=== PATIENT | male | born 1985 | race Caucasian/White ===

== ENCOUNTER 2016-08-31 11:19 | Emergency (ER) | payer OTHER ==
[2016-08-31 11:37] VITALS: BP 134/91; PULSE 68; TEMP 98.6; BMI 27.8
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
== END 2016-08-31 13:44 | disposition home or self-care (01) ==
LOC: JERFT 11:19
DX: J70.5 Respiratory conditions due to smoke inhalation (principal); X08.8XXA Exposure to other specified smoke, fire and flames, initial encounter; Y93.89 Activity, other specified; Y92.89 Other specified places as the place of occurrence of the external cause; Y99.0 Civilian activity done for income or pay
CPT/HCPCS: 82375; 99281-25

== ENCOUNTER 2017-06-24 10:47 | Emergency (ER) | payer OTHER ==
[2017-06-24 11:12] VITALS: BP 126/74; PULSE 66; TEMP 98.3; BMI 27.3
[2017-06-24] MEDS ORDERED: KETOROLAC TROMETHAMINE 60 MG/2 ML VIAL IM ONE (12:14)
[2017-06-24] MEDS ORDERED: CYCLOBENZAPRINE HCL 10 MG TABLET (FP) PO ONE (12:14)
--- NOTE | 2017-06-24 12:14 | PDOC ---
History of Present Illness - General Chief Complaint: Back Pain Stated Complaint: LIN, BACK PAIN Time Seen by Provider: 06/24/17 11:48 History Source: Patient Exam Limitations: No Limitations - History of Present Illness Initial Comments: 06/24/17 12:18 Patient is a 31-year-old male, LIN, with no past medical history, who presents emergency department today complaining of right lower back pain. 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 As a result of his colleagues slipping. The patient twisted his low back and had increased weight to his lift. Denies previous back injury. Denies weakness, numbness and tingling of the legs, gait changes, ladder/bowel incontinence, dizziness, lightheadedness, neck pain, head pain, LOC. Past History - Travel Traveled outside of the country in the last 30 days: No Close contact w/someone who was outside of country & ill: No - Past Medical History Allergies/Adverse Reactions: Allergies Allergy/AdvReac Type Severity Reaction Status Date / Time cats AdvReac Uncoded 06/24/17 11:09 pollen AdvReac Uncoded 06/24/17 11:09 Home Medications: Ambulatory Orders Cyclobenzaprine HCl [Flexeril -] 10 mg PO HS #7 tablet 06/24/17 Ibuprofen 800 mg PO TID #30 tablet 06/24/17 COPD: No Other medical history: DENIES. - Immunization History Td Vaccination: Yes Immunization Up to Date: Yes - Suicide/Smoking/Psychosocial Hx Smoking Status: No Smoking History: Never smoked Have you smoked in the past 12 months: No Number of Cigarettes Smoked Daily: 0 Cigars Per Day: 0 Hx Alcohol Use: No Drug/Substance Use Hx: No Substance Use Type: None Review of Systems - Review of Systems Able to Perform ROS?: Yes Comments:: 06/24/17 12:20 CONSTITUTIONAL: Absent: fever, chills, diaphoresis, generalized weakness, malaise, loss of appetite HEENT: Absent: rhinorrhea, nasal congestion, throat pain, throat swelling, difficulty swallowing, mouth swelling, ear pain, eye pain, visual Changes CARDIOVASCULAR: Absent: chest pain, loss of consciousness, palpitations, irregular heart rate, peripheral edema RESPIRATORY: Absent: cough, shortness of breath, dyspnea with exertion, orthopnea, wheezing, stridor, hemoptysis GASTROINTESTINAL: Absent: abdominal pain, abdominal distension, nausea, vomiting, diarrhea, constipation, melena, hematochezia GENITOURINARY: Absent: dysuria, frequency, urgency, hesitancy, hematuria, flank pain, genital pain MUSCULOSKELETAL: Present: R lower back pain. Absent: myalgia, arthralgia, joint swelling SKIN: Absent: rash, itching, pallor HEMATOLOGIC/IMMUNOLOGIC: Absent: easy bleeding, easy bruising, lymphadenopathy, frequent infections ENDOCRINE: Absent: unexplained weight gain, unexplained weight loss, heat intolerance, cold intolerance NEUROLOGIC: Absent: headache, focal weakness or paresthesias, dizziness, unsteady gait, seizure, mental status changes, bladder or bowel incontinence PSYCHIATRIC: Absent: anxiety, depression, suicidal or homicidal ideation, hallucinations. Is the patient limited Korean proficient: No *Physical Exam - Vital Signs Last Vital Signs Temp Pulse Resp BP Pulse Ox 98.3 F 66 19 126/74 99 06/24/17 11:10 06/24/17 11:10 06/24/17 11:10 06/24/17 11:10 06/24/17 11:10 - Physical Exam Comments: 06/24/17 12:21 GENERAL: Well developed, well nourished. Awake and alert. No acute distress. Sitting on exam bed. NECK: Supple. Full ROM. No JVD. Carotid pulses 2+ and symmetric, without bruits. No thyromegaly. No lymphadenopathy. MUSCULOSKELETAL TTP of the R lower paraspinous muscles at level of L3-L5. Pt. also with tenderness to L lower paraspinous muscles. No midline tenderness at the neck or back. (-) flip test. Normal range of motion at all joints. No bony deformities or tenderness. No CVA tenderness. EXTREMITIES: No cyanosis. No clubbing. No edema. No calf tenderness. Strength of upper and lower extremities intact b/l 5/5. SKIN: Warm and dry. Normal capillary refill. No rashes. No jaundice. NEUROLOGICAL: Alert, awake, appropriate. Cranial nerves 2-12 intact. No deficits to light touch and temperature in face, upper extremities and lower extremities. No motor deficits in the in face, upper extremities and lower extremities. Normoreflexic in the upper and lower extremities. Normal speech. Toes are down- going bilaterally. Gait is normal without ataxia. Normal rectal tone. Medical Decision Making - Medical Decision Making 12/04/17 12:28 Patient is a 31-year-old male, [employer] ED, with no past medical history presents emergency Department with low back pain after lifting a heavy patient. Exam shows tenderness to the right paraspinous muscles. Rest of exam is benign. VSS, afebrile. We'll treat at this time with Flexeril and toradol. Patient given strict return precautions. We'll discharge home at this time with rx for ibuprofen and flexaril. *DC/Admit/Observation/Transfer Diagnosis at time of Disposition: Low back pain Qualifiers: Chronicity: acute Back pain laterality: bilateral Sciatica presence: without sciatica Qualified Code(s): M54.5 - Low back pain - Discharge Dispostion Disposition: HOME Condition at time of disposition: Good Admit: No - Prescriptions Prescriptions: Cyclobenzaprine HCl [Flexeril -] 10 mg PO HS #7 tablet Ibuprofen 800 mg PO TID #30 tablet - Referrals - Patient Instructions Printed Discharge Instructions: DI for Low Back Pain Additional Instructions: You have low back pain. This is most likely due to the lifting sustained at work today. Please take Motrin 800 mg 3 times a day for the next week. Please do not exceed 3000 mg a day. You may also take Flexeril 10 mg at night. Do not take this medication before driving, as it may make you sleepy. You may use heat on the area to help with the pain. Please follow-up with your primary care doctor in the next 2-3 days. Please avoid lifting anything heavier than 10 pounds. Return to the emergency department if you have worsening pain, numbness and tingling down her legs, weakness, bladder or bowel incontinence, changes in the way walk, or if you have any changes in your symptoms. - Post Discharge Activity Forms/Work/School Notes: Back to Work
[2017-06-24] MEDS ORDERED: KETOROLAC TROMETHAMINE 60 MG/2 ML VIAL ONE (12:18)
[2017-06-24] MEDS ORDERED: CYCLOBENZAPRINE HCL 10 MG TABLET (FP) ONE (12:18)
== END 2017-06-24 12:30 | disposition home or self-care (01) ==
LOC: JERFT 10:47
PROC: 3E0233Z Introduction of Anti-inflammatory into Muscle, Percutaneous Approach (ICD-10-PCS; principal; 2017-06-24)
DX: S39.012A Strain of muscle, fascia and tendon of lower back, initial encounter (principal); X50.0XXA Overexertion from strenuous movement or load, initial encounter; Y93.F2 Activity, caregiving, lifting; Y92.89 Other specified places as the place of occurrence of the external cause; Y99.0 Civilian activity done for income or pay
CPT/HCPCS: 99281-25

== ENCOUNTER 2017-08-28 19:13 | Emergency (ER) | payer OTHER ==
[2017-08-28 19:21] VITALS: BP 131/77; PULSE 84; TEMP 98.4; BMI 27.1
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
[2017-08-28] MEDS ORDERED: IBUPROFEN 600 MG TABLET (FP) PO ONE ×2 (19:56→20:01)
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
== END 2017-08-28 20:03 | disposition home or self-care (01) ==
LOC: JERFT 19:13
DX: S39.012A Strain of muscle, fascia and tendon of lower back, initial encounter (principal); S80.01XA Contusion of right knee, initial encounter; W18.39XA Other fall on same level, initial encounter; Y35.811A Legal intervention involving manhandling, law enforcement official injured, initial encounter; Y93.89 Activity, other specified; Y92.89 Other specified places as the place of occurrence of the external cause; Y99.0 Civilian activity done for income or pay
CPT/HCPCS: 99281-25

== ENCOUNTER 2017-10-15 17:28 | Emergency (ER) | payer OTHER ==
[2017-10-15 17:40] VITALS: BP 126/84; PULSE 115; TEMP 98.3; BMI 27.8
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
== END 2017-10-15 19:05 | disposition home or self-care (01) ==
LOC: JERFT 17:28
DX: S89.81XA Other specified injuries of right lower leg, initial encounter (principal); S69.81XA Other specified injuries of right wrist, hand and finger(s), initial encounter; Y35.811A Legal intervention involving manhandling, law enforcement official injured, initial encounter; Y93.89 Activity, other specified; Y92.89 Other specified places as the place of occurrence of the external cause; Y99.0 Civilian activity done for income or pay
CPT/HCPCS: 99281-25

== ENCOUNTER 2018-02-06 21:37 | Emergency (ER) | payer OTHER ==
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
[2018-02-06 21:53] VITALS: BP 147/67; PULSE 72; TEMP 97.4; BMI 28.4
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
== END 2018-02-06 22:27 | disposition home or self-care (01) ==
LOC: JER 21:37
DX: Z20.1 Contact with and (suspected) exposure to tuberculosis (principal); Y35.891A Legal intervention involving other specified means, law enforcement official injured, initial encounter; Y93.89 Activity, other specified; Y92.89 Other specified places as the place of occurrence of the external cause; Y99.0 Civilian activity done for income or pay
CPT/HCPCS: 71045-TC-FY; 99281-25

== ENCOUNTER 2018-03-15 19:43 | Emergency (ER) | payer OTHER ==
[2018-03-15 20:10] VITALS: BP 146/76; PULSE 97; TEMP 98.6; BMI 28.4
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
== END 2018-03-15 20:42 | disposition home or self-care (01) ==
LOC: JERFT 19:43
DX: S00.83XA Contusion of other part of head, initial encounter (principal); Y04.2XXA Assault by strike against or bumped into by another person, initial encounter; Y35.891A Legal intervention involving other specified means, law enforcement official injured, initial encounter; Y93.89 Activity, other specified; Y92.89 Other specified places as the place of occurrence of the external cause; Y99.0 Civilian activity done for income or pay; Y07.9 Unspecified perpetrator of maltreatment and neglect
CPT/HCPCS: 99281-25

== ENCOUNTER 2018-12-02 15:50 | Emergency (ER) | payer OTHER | END 2018-12-02 16:54 | disposition home or self-care (01) | LOC: JERFT 15:50 ==

== ENCOUNTER 2019-10-01 16:42 | Emergency (ER) | payer OTHER ==
[2019-10-01 16:48] VITALS: BP 148/81; PULSE 89; TEMP 98.1; BMI 25.7
[2019-10-01] MEDS ORDERED: IBUPROFEN 600 MG TABLET (FP) PO ONE ×2 (16:53→16:55)
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
== END 2019-10-01 17:25 | disposition home or self-care (01) ==
LOC: JERFT 16:42
DX: S89.82XA Other specified injuries of left lower leg, initial encounter (principal); M25.562 Pain in left knee; Y35.811A Legal intervention involving manhandling, law enforcement official injured, initial encounter; Y93.89 Activity, other specified; Y92.89 Other specified places as the place of occurrence of the external cause; Y99.0 Civilian activity done for income or pay; Z91.048 Other nonmedicinal substance allergy status
CPT/HCPCS: 73562-TC-LT-FY; 99283-25